=== PATIENT | male | born 1995 | race Caucasian/White ===

== ENCOUNTER 2016-07-06 11:26 | Day surgery (SDC) | payer OTHER ==
[~2016-07-06] VITALS: Ht 167.6 cm; Wt 58.3 kg
[2016-07-06 12:03] VITALS: BP 127/82; PULSE 98; TEMP 98.5
[2016-07-06] MEDS ORDERED: KLONOPIN 0.5MG0.5 MG PO (12:16)
[2016-07-06] MEDS ORDERED: ZYBAN150 M1 (12:17)
[2016-07-06] MEDS ORDERED: SEROQUEL 1100 MG/TAB PO (12:17)
[2016-07-06] MEDS ORDERED: SYNTHROID 0.0.025 MG PO (12:18)
[2016-07-06] MEDS ORDERED: ZOFRAN8 MG PO (12:18)
[2016-07-06] MEDS ORDERED: IBU800 M1 PO (12:19)
[2016-07-06] MEDS ORDERED: CONCERTA36 MG PO (12:19)
[2016-07-06 15:24] VITALS: BP 120/78; PULSE 94; TEMP 97.9
[2016-07-06 15:35] VITALS: BP 121/81; PULSE 95
[2016-07-06 15:48] VITALS: TEMP 98.7
[2016-07-06 15:50] VITALS: BP 119/73; PULSE 93
[2016-07-06 16:00] VITALS: BP 113/79; PULSE 92
== END 2016-07-06 16:42 | disposition home or self-care (01) ==
LOC: SDCO 11:26
DX: K02.9 Dental caries, unspecified (principal); M26.30 Unspecified anomaly of tooth position of fully erupted tooth or teeth; F84.0 Autistic disorder
CPT/HCPCS: J0295; J1100; J2405; J2704; J3010

== ENCOUNTER → 2017-01-18 | Outpatient (CLI) | payer OTHER ==
[~2017-01-18] VITALS: Ht 167.6 cm; Wt 59.1 kg
[~2017-01-18] MED LIST: CONCERTA36 MG PO; IBU800 M1 PO; KLONOPIN 0.5MG0.5 MG PO; SEROQUEL 1100 MG/TAB PO; SYNTHROID 0.0.025 MG PO; ZOFRAN8 MG PO; ZYBAN150 M1
[2017-01-18 11:15] VITALS: BP 83/46; PULSE 93
[2017-01-18 12:10] VITALS: BP 105/63; PULSE 87
[2017-01-18 12:27] VITALS: BP 111/68; PULSE 92
[2017-01-18 12:50] VITALS: BP 101/66; PULSE 75
== END ==
LOC: COL.RAD 01-17 09:00
DX: R10.0 Acute abdomen (principal)
CPT/HCPCS: J2250; Q9967